=== PATIENT | male | born 1945 | race African-American/Black ===

== ENCOUNTER 2017-10-27 10:18 | Inpatient (IN) | payer MEDICARE ==
[2017-10-22 13:02] LABS: HEMATOCRIT 41.3 % (42.0-52.0); HEMOGLOBIN 13.8 gm/dL (14.0-18.0); MCH 27.9 pg (26.0-34.0); MCHC 33.3 g/dL (28.0-37.0); MCV 83.8 fL (80.0-100.0); RBC 4.93 mil/uL (4.50-6.00); RDW 13.5 % (10.5-14.5); WBC 8.6 thou/uL (4.0-11.0)
[2017-10-22 13:11] LABS: ALBUMIN 3.6 g/dL (3.4-5.0); CALCIUM 9.6 mg/dL (8.5-10.1); CREATININE 0.8 mg/dL (0.7-1.3); POTASSIUM 4.1 mmol/L (3.5-5.1)
[2017-10-22 13:12] LABS: PROTIME 10.4 Seconds (9.3-11.4)
[2017-10-22 13:39] LABS: URINE BILIRUBIN NEGATIVE (Negative); URINE BLOOD NEGATIVE (Negative); URINE CLARITY CLEAR; URINE COLOR YELLOW; URINE GLUCOSE-RANDOM* NEGATIVE (Negative); URINE KETONES NEGATIVE (Negative); URINE LEUKOCYTES-REFLEX NEGATIVE (Negative); URINE NITRITE-REFLEX NEGATIVE (Negative); URINE PROTEIN (DIPSTICK) NEGATIVE (Negative); URINE SPECIFIC GRAVITY 1.015 (1.005-1.035); URINE UROBILINOGEN 0.2 E.U./dl (0.2-1.0)
[~2017-10-27] VITALS: Ht 188 cm; Wt 122.5 kg
--- NOTE | ~2017-10-27 | O ---
[facility] [place] [address] OPERATIVE REPORT Name: JORDEN PERLA V Room #: 402[facility] M.R.#: [id number] Admission: 11/05/17 Attend Phys: Yuniel Jefferson MD Discharge: 11/06/17 Date of : 45 Report #: [id number] THIS REPORT FOR: //name// CC: Royce Adolfo Jefferson DATE OF SERVICE: 11/05/2017 PREOPERATIVE DIAGNOSIS: Left total hip arthroplasty, polyethylene wear. POSTOPERATIVE DIAGNOSIS: Left total hip arthroplasty, polyethylene wear. PROCEDURE: Revision left total hip arthroplasty with polyethylene and head exchange only. SURGEON: Yuniel Jefferson MD LOCAL BULK DRIVER: Yoana Ford PA-C ANESTHESIA: General endotracheal. INDICATION FOR LOCAL BULK DRIVER: Throughout the case, extensive retraction and manipulation of the hip including dislocation and reduction was required. This was afforded to me by my care assistant. ESTIMATED BLOOD LOSS: 50 mL. COMPLICATIONS: None. SPECIMENS: None. CONDITION UPON LEAVING THE OPERATING ROOM: Stable. INDICATIONS FOR PROCEDURE: The patient is a 71-year-old gentleman who has had a left total hip arthroplasty 24 years ago. He has had progressive pain in his left hip and x-ray showed him to have eccentric wear of his polyethylene liner. He had a CT scan showing to have minimal to no osteolysis and it was felt that he would benefit from a polyethylene exchange and head exchange. DESCRIPTION OF PROCEDURE: Risk, benefits, alternatives, complications were discussed in detail with the patient including but not limited to risk of anesthesia, risk of damage to nerves, arteries, blood vessels, risk of infection, bleeding, risk for continued hip pain, leg length discrepancy, instability and need for reoperation. Informed consent was obtained from the patient. Left hip was appropriately marked in the preoperative holding area. IV clindamycin was given for preoperative antibiotics. He was brought to the [facility] [address] [place] [address] OPERATIVE REPORT Name: JORDEN PERLA V Room #: 402[facility] Bossman#: [id number] Admission: 11/05/17 Attend Phys: Yuniel Jefferson MD Discharge: 11/06/17 Date of : 45 Report #: [id number] operating room and placed in supine position on operating room table. General endotracheal anesthesia was induced without complication. He was then placed in the right lateral decubitus position with left hip uppermost. Left hip and lower extremity were prepped and draped in normal sterile fashion. Timeout was performed properly identifying the patient and procedure as well as instrumentation. All in the operating room were in agreement. The previous scar was used and this was opened with 10 blade through the skin. Dissection was taken down to the fascia with Bovie cautery and a Parada elevator was used to clean off the fascia. Fresh #10 blade was used to make a fascial incision. This was taken proximally and distally with curved Cardona scissor. Charnley retractor was placed. The posterior capsule and tissues were then dissected off the posterior femur subperiosteally with Bovie cautery. Upon entering the hip joint, there was noted to be normal appearing hip joint fluid with hypertrophic tissue. The tissue was then removed with Bovie cautery and rongeur. The hip was dislocated and the head was removed with bone tamp. The stem was stable and showed no signs of loosening. Acetabular retractors were placed around the acetabulum and the polyethylene was then removed with an osteotome. There was obvious superior wear of the polyethylene. The locking ring was removed from the acetabulum. Acetabulum was visualized and pushed and pulled and found to be stable. A new polyethylene liner for a 58 cup for 36 head was then placed and seated. This was then trialed with a 36+0 cobalt chrome head. Hip was reduced, taken through range of motion, found to be stable, found to have equal leg lengths. Hip was dislocated and final 36+0 cobalt chrome head was placed. Hip was reduced, taken through range of motion, found to be stable, found to have equal leg lengths. The joint was thoroughly irrigated with normal saline. A gram of vancomycin was placed deep in the joint. The capsule was repaired with 0 FiberWire. Fascia was closed with 0 Vicryl. Skin was closed with 2-0 Vicryl, skin staple and an Aquacel dressing was applied. The patient tolerated this procedure well and went to the recovery room under the care of anesthesia postoperatively. <ELECTRONICALLY SIGNED> By: Yuniel Jefferson MD 11/25/17 0820 [id number] Yuniel Jefferson MD /nt
[~2017-10-27 10:18] MED LIST: ACCUNEB SO1.25 MG/1 INH; ALLOPURINOL 30300 M2 PO; ASPIRIN325 PO; COREG25 MG PO; COZAAR 50 MG TA50 M2 PO; DEMADEX20 MG PO; DOXYCYCLINE 10100 MG PO; FISH OIL 1,001000 M2 PO; FISH OIL 1,4001 EACH PO; GLUCOSAMINE CH1 EAC7 PO; GLUCOSAMINE CH1 EACH PO; GLUCOSAMINE HC500 MG PO; HYDROCODON-ACE1 EAC7 PO; HYDROCODONE-AP1 EAC6 PO; LOSARTAN-HCTZ1 EAC1 PO; MULTI VITAMIN1 EACH PO; POTASSIUM20 PO; TIKOSYN.5 PO; TIKOSYN125 MCG PO; TIKOSYN500 MCG PO; XANAX 0.25 MG0.25 MG PO; XARELTO10 MG PO
[2017-11-03] MEDS ORDERED: VENTOLIN HFA 1818 GM INH (08:22)
[2017-11-03] MEDS ORDERED: ALLOPURINOL 30300 M1 PO (08:23)
[2017-11-03] MEDS ORDERED: COZAAR100 MG PO (08:25)
[2017-11-03] MEDS ORDERED: TORSEMIDE10 MG PO (08:27)
[2017-11-05] VITALS (7 sets, daily range): BP systolic 118–167; BP diastolic 62–98
[2017-11-06] VITALS: BP 113/68
[2017-11-06 04:00] VITALS: BP 108/60
[2017-11-06 05:28] LABS: HEMATOCRIT 37.2 % (42.0-52.0); MCH 27.5 pg (26.0-34.0); MCHC 32.4 g/dL (28.0-37.0); RBC 4.38 mil/uL (4.50-6.00); RDW 13.4 % (10.5-14.5); WBC 11.2 thou/uL (4.0-11.0)
[2017-11-06 08:21] VITALS: BP 123/60
[2017-11-06] MEDS ORDERED: PERCOCET PO (08:54)
[2017-11-06 13:41] VITALS: BP 123/60
== END 2017-11-06 14:58 | disposition home or self-care (01) | DRG 468 ==
LOC: PRE 10:18 → 4N 11-05 05:20 → TBA 11-05 05:20 → PRE 11-05 08:40 → 4N 11-05 20:21 → ENTRNSPT 11-06 14:24 → EDTRNSPTSTS 11-06 14:25 → 4N 11-06 14:58
PROVIDERS: Orthopaedic Surgery
PROC: 0SWE0JZ Revision of Synthetic Substitute in Left Hip Joint, Acetabular Surface, Open Approach (ICD-10-PCS; principal; 2017-11-05)
DX: T84.061A Wear of articular bearing surface of internal prosthetic left hip joint, initial encounter (principal); Z88.6 Allergy status to analgesic agent; Z91.010 Allergy to peanuts
CPT/HCPCS: 10790; 50010; 50101; 50382; 50414; 51412; 51771; 53078; 54118; 55389; 56524; 56527; 56528; 56530; 57095; 62110; 62900; 70005